=== PATIENT | female | born 1965 | race Caucasian/White ===

== ENCOUNTER 2017-10-28 19:42 | Emergency (ER) | payer MEDICAID ==
[~2017-10-28] VITALS: Ht 157.5 cm; Wt 65.3 kg
[~2017-10-28 19:42] MED LIST: COU3T PO; COU4T PO; GABA-338 PO; LAMO25TA4 PO; LEVO175T52 PO; LORA1TAB PO; NITR100C PO; NORCO10T PO; OMEP40CA37 PO; ONDA4TAB6 PO; PROM25TA14 PO; TRAZ-91 PO
[2017-10-28 20:54] LABS: BASOPHILS # (AUTO) 0.2 X10'3 (0-0.2); BASOPHILS % (AUTO) 1.4 % (0-1); EOSINOPHILS # (AUTO) 0.4 X10'3 (0-0.9); EOSINOPHILS % (AUTO) 3.3 % (0-6); HEMATOCRIT 39.1 % (35.0-45.0); HEMOGLOBIN 13.7 g/dl (12.0-16.0); MEAN CORPUSCULAR HEMOGLOBIN 30.1 PG (27.0-31.0); MEAN CORPUSCULAR HGB CONC 34.9 % (33.0-36.5); MEAN CORPUSCULAR VOLUME 86.2 FL (78-98); MEAN PLATELET VOLUME 8.2 FL (7.4-10.4); MONOCYTES # (AUTO) 0.5 X10'3 (0-0.9); MONOCYTES % (AUTO) 4.5 % (2-12); NEUTROPHILS # (AUTO) 7.1 X10'3 (1.8-7.7); NEUTROPHILS % (AUTO) 63.8 % (42-75); PLATELET COUNT 267 X10'3 (140-440); RED BLOOD COUNT 4.54 X10'6 (4.20-5.60); RED CELL DISTRIBUTION WIDTH 14.9 % (11.5-14.5); WHITE BLOOD COUNT 11.2 X10'3 (4.5-11.0)
[2017-10-28 21:06] LABS: INR 2.3 INR; PARTIAL THROMBOPLASTIN TIME 38 SECONDS (22-32); PROTHROMBIN TIME 22.7 SECONDS (9.0-12.0)
[2017-10-28 21:11] LABS: ALANINE AMINOTRANSFERASE 26 U/L (12-78); ALBUMIN 3.8 G/DL (3.4-5.0); ALBUMIN/GLOBULIN RATIO 1.1 (1.1-1.5); ALKALINE PHOSPHATASE 78 IU/L (46-116); ANION GAP 10 (8-16); ASPARTATE AMINO TRANSFERASE 18 U/L (10-37); BILIRUBIN,TOTAL 0.1 MG/DL (0.1-1.0); BLOOD UREA NITROGEN 16 MG/DL (7-18); BUN/CREATININE RATIO 18.8 (6.6-38.0); CALCIUM 9.2 MG/DL (8.5-10.1); CHLORIDE 105 MMOL/L (99-107); CREATININE 0.85 MG/DL (0.40-0.90); GLUCOSE 106 MG/DL (70-104); POTASSIUM 4.4 MMOL/L (3.5-5.1); SODIUM 143 MMOL/L (135-145); TOTAL CARBON DIOXIDE 28.2 MMOL/L (24-32); TOTAL PROTEIN 7.4 G/DL (6.4-8.2); eGFR 70 ML/MIN
[2017-10-28] MEDS ORDERED: HYDROcodone/acetaminophen 10/325mg tab PO ONE (22:50)
[2017-10-28] MEDS ORDERED: iohexol 350MG/ML 100ml bottle IV ONE (23:00)
[2017-10-28] MEDS ORDERED: DOXY100C43 PO (23:54)
[2017-10-29] MEDS ORDERED: diazepam 5mg tablet PO ONE (00:10)
[2017-10-29 01:01] VITALS: BP 172/64
== END 2017-10-29 01:02 | disposition home or self-care (01) ==
LOC: ER 19:43
DX: R09.1 Pleurisy (principal); J44.9 Chronic obstructive pulmonary disease, unspecified; F15.10 Other stimulant abuse, uncomplicated; Z86.73 Personal history of transient ischemic attack (TIA), and cerebral infarction without residual deficits; Z86.711 Personal history of pulmonary embolism; Z87.891 Personal history of nicotine dependence; Z88.0 Allergy status to penicillin; Z79.899 Other long term (current) drug therapy; Z79.01 Long term (current) use of anticoagulants; Z90.710 Acquired absence of both cervix and uterus
CPT/HCPCS: 36415; 71045; 71275; 80053; 84484; 85025; 85610; 85730; 93005; 99285; J7030; Q9967

== ENCOUNTER 2018-12-18 13:16 | Emergency (ER) | payer MEDICAID ==
[~2018-12-18] VITALS: Ht 157.5 cm; Wt 65.9 kg
[2018-12-18 13:22] VITALS: BP 152/72
[2018-12-18 14:03] LABS: URINE HCG NEGATIVE (NEG)
[2018-12-18 14:04] LABS: CLARITY,URINE CLEAR (Clear); COLOR,URINE YELLOW (Yellow); GLUCOSE, URINE NEGATIVE (Neg); KETONES,URINE NEGATIVE (Neg); LEUKOCYTE ESTERASE ,URINE NEGATIVE (Neg); NITRITES, URINE NEGATIVE (Neg); OCCULT BLOOD,URINE LARGE (Neg); PROTEIN,URINE NEGATIVE (Neg); UROBILINOGEN,URINE 0.2 E.U/dL (0.2-1.0)
[2018-12-18 14:10] LABS: UA COLLECTION TYPE CLN CATCH MIDSTREAM
[2018-12-18 14:12] LABS: BACTERIA,URINE NONE SEEN /HPF (Neg); MUCUS STRANDS FEW /LPF (Neg); SQUAMOUS EPITHELIAL CELL,UR FEW /LPF (FEW); WBC,URINE 0-4 /HPF (0-4)
[2018-12-18] MEDS ORDERED: ketorolac trometh inj. 60 MG/2 ML VIAL IM ONE (14:15)
== END 2018-12-18 14:55 | disposition home or self-care (01) ==
LOC: ER 13:16
DX: G89.29 Other chronic pain (principal); M54.5 Low back pain; R30.0 Dysuria; J44.9 Chronic obstructive pulmonary disease, unspecified; F15.90 Other stimulant use, unspecified, uncomplicated; Z86.73 Personal history of transient ischemic attack (TIA), and cerebral infarction without residual deficits; Z86.711 Personal history of pulmonary embolism; Z87.442 Personal history of urinary calculi; Z90.710 Acquired absence of both cervix and uterus; Z98.890 Other specified postprocedural states; Z88.0 Allergy status to penicillin; Z79.01 Long term (current) use of anticoagulants; Z79.899 Other long term (current) drug therapy
CPT/HCPCS: 81001; 81025; 96372; 99283; J1885

== ENCOUNTER 2019-05-23 13:25 | Inpatient (IN) | payer MEDICAID ==
[~2019-05-23] VITALS: Ht 162.6 cm; Wt 56.4 kg
[~2019-05-23 13:25] MED LIST changes: -COU3T PO; -COU4T PO; -GABA-338 PO; +GABA-532 PO; +LAMO150T2 PO; -LAMO25TA4 PO; -LEVO175T52 PO; +LEVO200T8 PO; -LORA1TAB PO; -NITR100C PO; -OMEP40CA37 PO; -ONDA4TAB6 PO; -PROM25TA14 PO; -TRAZ-91 PO; +TRAZ300T2 PO; +WARF6TAB PO
[2019-05-23] MEDS ORDERED: normal saline 1000ML IV soln IV ONE (13:40)
[2019-05-23] MEDS ORDERED: levoFLOXACIN-Levaquin 750MG/D5 150 ML IV STA (13:40)
[2019-05-23 13:55] LABS: BASOPHILS # (AUTO) 0.1 X10'3 (0-0.2); BASOPHILS % (AUTO) 0.6 % (0-1); EOSINOPHILS % (AUTO) 0.3 % (0-6); HEMATOCRIT 42.3 % (35.0-45.0); HEMOGLOBIN 14.3 g/dl (12.0-16.0); LYMPHOCYTES # (AUTO) 1.2 X10'3 (1.1-4.8); LYMPHOCYTES % (AUTO) 7.5 % (21-51); MEAN CORPUSCULAR HEMOGLOBIN 30.6 PG (27.0-31.0); MEAN CORPUSCULAR HGB CONC 33.8 g/dL (33.0-36.5); MEAN CORPUSCULAR VOLUME 90.4 FL (78-98); MONOCYTES # (AUTO) 0.7 X10'3 (0-0.9); MONOCYTES % (AUTO) 4.5 % (2-12); NEUTROPHILS # (AUTO) 14.3 X10'3 (1.8-7.7); NEUTROPHILS % (AUTO) 87.1 % (42-75); PLATELET COUNT 259 X10'3 (140-440); RED BLOOD COUNT 4.68 X10'6 (4.20-5.60); RED CELL DISTRIBUTION WIDTH 15.7 % (11.5-14.5); WHITE BLOOD COUNT 16.5 X10'3 (4.5-11.0)
[2019-05-23] MEDS ORDERED: acetaminophen 325mg tablet PO ONE (13:55)
[2019-05-23] MEDS ORDERED: morphine 4 MG/ML inj SYRINge IV ONE ×2 (13:55→15:45)
[2019-05-23 14:06] LABS: D-DIMER 0.23 MG/L FEU (0-0.50); PARTIAL THROMBOPLASTIN TIME 28 SECONDS (22-32)
[2019-05-23 14:10] LABS: ALANINE AMINOTRANSFERASE 24 U/L (12-78); ALBUMIN 4.2 G/DL (3.4-5.0); ALBUMIN/GLOBULIN RATIO 1.2 (1.1-1.5); ALKALINE PHOSPHATASE 57 IU/L (46-116); ANION GAP 12 (8-16); ASPARTATE AMINO TRANSFERASE 11 U/L (10-37); BILIRUBIN,TOTAL 0.4 MG/DL (0.1-1.0); BLOOD UREA NITROGEN 11 MG/DL (7-18); BUN/CREATININE RATIO 11.8 (6.6-38.0); CALCIUM 9.3 MG/DL (8.5-10.1); CHLORIDE 104 MMOL/L (99-107); CREATININE 0.93 MG/DL (0.40-0.90); GLUCOSE 107 MG/DL (70-104); POTASSIUM 4.2 MMOL/L (3.5-5.1); SODIUM 142 MMOL/L (135-145); TOTAL CARBON DIOXIDE 26.1 MMOL/L (24-32); TOTAL PROTEIN 7.7 G/DL (6.4-8.2); eGFR 63 ML/MIN
[2019-05-23 14:12] LABS: TROPONIN I < 0.04 NG/ML (0.0-0.05)
--- NOTE | 2019-05-23 16:02 | NUR ---
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
[2019-05-23] MEDS ORDERED: mag hydrox/Alum hydrox/simeth 30ml oral suspension PO PRN (17:00)
[2019-05-23] MEDS ORDERED: acetaminophen 325mg tablet PO PRN ×2 (17:00)
[2019-05-23] MEDS ORDERED: ondansetron/PF 4mg/2ml inj IV PRN (17:00)
[2019-05-23] MEDS ORDERED: morphine 2 MG/ML inj. syringe IV PRN (17:00)
[2019-05-23] MEDS ORDERED: HYDROcodone/acetaminophen 5mg/325mg tablet PO PRN (17:00)
[2019-05-23] MEDS ORDERED: magnesium hydroxide 30ml (MOM) UD suspension PO PRN (17:00)
[2019-05-23] MEDS ORDERED: nicotine 21mg patch - 24 hr TD ONE (17:30)
[2019-05-23] MEDS: HYDROcodone/acetaminophen 10/325mg tab PO PRN ×2 (17:31→23:52)
[2019-05-23] MEDS ORDERED: TRAZ300T2 PO (17:47)
[2019-05-23] MEDS ORDERED: DOCU100C41 PO (17:47)
[2019-05-23] MEDS ORDERED: LAMO200T PO (17:47)
[2019-05-23] MEDS ORDERED: GABA-532 PO (17:47)
[2019-05-23] MEDS ORDERED: NORCO10T PO (17:47)
[2019-05-23] MEDS ORDERED: LEVO200T8 PO (17:47)
[2019-05-23] MEDS ORDERED: LAMO100T65 PO (17:47)
[2019-05-23] MEDS ORDERED: APIX5TAB3 PO (17:47)
[2019-05-23] MEDS ORDERED: heparin 10,000 units/1 ML INJ IV ONE (17:50)
[2019-05-23] MEDS ORDERED: LAMO100T89 PO (17:50)
[2019-05-23] MEDS: normal saline 1000ml 1,000 ML IV SCH (17:57)
[2019-05-23 19:16] VITALS: BP 115/54
[2019-05-23] MEDS ORDERED: pneumococcal 23-VAL P-sac vacc 25 mcg/0.5ml vial IMVAC ONE (19:55)
[2019-05-23] MEDS: gabapentin 300mg capsule PO SCH (19:58)
[2019-05-23] MEDS: lactobacillus rhamnosus 10,000 MMU CELLS/CAPSULE PO SCH (19:58)
[2019-05-23] MEDS: heparin 25,000 UNIT/250ml bag 250 ML IV SCH (20:02)
[2019-05-23] MEDS: traZODone 150mg tablet PO SCH (20:11)
[2019-05-23] MEDS: docusate sod 100mg capsule PO SCH (20:11)
[2019-05-23] MEDS: lamoTRIgine 100mg tablet PO SCH (20:12)
[2019-05-23] MEDS ORDERED: warfarin 5mg tablet PO ONE (21:00)
[2019-05-23] MEDS ORDERED: albuterol 2.5 MG/3 ML nebule NEB PRN (21:10)
[2019-05-24] VITALS: BP 96/51
[2019-05-24 02:37] LABS: ANION GAP 11 (8-16); BLOOD UREA NITROGEN 11 MG/DL (7-18); BUN/CREATININE RATIO 12.6 (6.6-38.0); CALCIUM 8.3 MG/DL (8.5-10.1); CHLORIDE 107 MMOL/L (99-107); CREATININE 0.87 MG/DL (0.40-0.90); GLUCOSE 149 MG/DL (70-104); POTASSIUM 3.9 MMOL/L (3.5-5.1); SODIUM 142 MMOL/L (135-145); eGFR 68 ML/MIN
[2019-05-24 02:52] LABS: BASOPHILS # (AUTO) 0.1 X10'3 (0-0.2); BASOPHILS % (AUTO) 0.3 % (0-1); EOSINOPHILS % (AUTO) 0.1 % (0-6); HEMATOCRIT 36.3 % (35.0-45.0); LYMPHOCYTES # (AUTO) 1.2 X10'3 (1.1-4.8); LYMPHOCYTES % (AUTO) 6.5 % (21-51); MEAN CORPUSCULAR HEMOGLOBIN 30.1 PG (27.0-31.0); MEAN CORPUSCULAR HGB CONC 33.2 g/dL (33.0-36.5); MEAN CORPUSCULAR VOLUME 90.6 FL (78-98); MEAN PLATELET VOLUME 8.3 FL (7.4-10.4); MONOCYTES # (AUTO) 0.8 X10'3 (0-0.9); MONOCYTES % (AUTO) 4.5 % (2-12); NEUTROPHILS # (AUTO) 15.9 X10'3 (1.8-7.7); NEUTROPHILS % (AUTO) 88.6 % (42-75); PLATELET COUNT 206 X10'3 (140-440); RED CELL DISTRIBUTION WIDTH 15.7 % (11.5-14.5); WHITE BLOOD COUNT 17.9 X10'3 (4.5-11.0)
[2019-05-24] MEDS: normal saline 1000ml 1,000 ML IV SCH ×3 (05:20→23:46)
[2019-05-24] MEDS: HYDROcodone/acetaminophen 10/325mg tab PO PRN ×4 (06:14→20:47)
--- NOTE | 2019-05-24 06:17 | NUR ---
Problems reprioritized. Patient report given, questions answered & plan of care reviewed with Aydee SPENCER.
--- NOTE | 2019-05-24 06:30 | NUR ---
Patient in room [facility]. I have received report from Mildred SPENCER and had the opportunity to ask questions and assume patient care. Patient resting eyes closed respirations even.
[2019-05-24 07:26] VITALS: BP 90/78
[2019-05-24] MEDS: lactobacillus rhamnosus 10,000 MMU CELLS/CAPSULE PO SCH ×2 (07:39→19:30)
[2019-05-24] MEDS: levoTHYROXINE 100mcg tablet PO SCH (07:40)
[2019-05-24] MEDS: gabapentin 300mg capsule PO SCH ×2 (07:40→19:30)
[2019-05-24] MEDS: lamoTRIgine 100mg tablet PO SCH ×2 (07:40→20:46)
[2019-05-24 08:20] VITALS: BP 122/72
[2019-05-24] MEDS: ketorolac tromethamine 15mg/ml inj. IV PRN ×2 (10:04→18:35)
[2019-05-24] MEDS: levoFLOXACIN-Levaquin 750MG/D5 150 ML IV SCH (10:35)
[2019-05-24] MEDS: heparin 10,000 units/1 ML INJ IV PRN ×2 (10:49→18:33)
[2019-05-24] MEDS: heparin 25,000 UNIT/250ml bag 250 ML IV SCH ×2 (10:52→18:32)
[2019-05-24 11:00] VITALS: BP 118/54
--- NOTE | 2019-05-24 18:30 | NUR ---
Problems reprioritized. Patient report given, questions answered & plan of care reviewed with Mildred SPENCER.
--- NOTE | 2019-05-24 18:30 | NUR ---
Patient in room [facility]. I have received report from Aydee SPENCER and had the opportunity to ask questions and assume patient care.
[2019-05-24] MEDS: nicotine 21mg patch - 24 hr TD SCH (18:37)
[2019-05-24] MEDS: docusate sod 100mg capsule PO SCH (20:46)
[2019-05-24] MEDS: traZODone 150mg tablet PO SCH (20:48)
[2019-05-24] MEDS ORDERED: warfarin 5mg tablet PO ONE (21:00)
[2019-05-24 21:08] VITALS: BP 115/61
[2019-05-24 23:56] VITALS: BP 98/60
[2019-05-25 01:50] LABS: BASOPHILS % (AUTO) 0.5 % (0-1); EOSINOPHILS # (AUTO) 0.1 X10'3 (0-0.9); EOSINOPHILS % (AUTO) 1.2 % (0-6); HEMATOCRIT 32.6 % (35.0-45.0); HEMOGLOBIN 10.8 g/dl (12.0-16.0); LYMPHOCYTES # (AUTO) 1.5 X10'3 (1.1-4.8); LYMPHOCYTES % (AUTO) 16.8 % (21-51); MEAN CORPUSCULAR HEMOGLOBIN 29.9 PG (27.0-31.0); MEAN CORPUSCULAR VOLUME 90.6 FL (78-98); MEAN PLATELET VOLUME 8.1 FL (7.4-10.4); MONOCYTES # (AUTO) 0.6 X10'3 (0-0.9); NEUTROPHILS # (AUTO) 6.7 X10'3 (1.8-7.7); NEUTROPHILS % (AUTO) 74.5 % (42-75); PLATELET COUNT 185 X10'3 (140-440); RED CELL DISTRIBUTION WIDTH 15.8 % (11.5-14.5); WHITE BLOOD COUNT 8.9 X10'3 (4.5-11.0)
[2019-05-25 02:04] LABS: ALBUMIN 2.6 G/DL (3.4-5.0); ANION GAP 9 (8-16); BLOOD UREA NITROGEN 10 MG/DL (7-18); BUN/CREATININE RATIO 12.7 (6.6-38.0); CALCIUM 8.1 MG/DL (8.5-10.1); CHLORIDE 111 MMOL/L (99-107); CREATININE 0.79 MG/DL (0.40-0.90); GLUCOSE 101 MG/DL (70-104); SODIUM 143 MMOL/L (135-145); TOTAL CARBON DIOXIDE 23.5 MMOL/L (24-32); eGFR 76 ML/MIN
[2019-05-25] MEDS: HYDROcodone/acetaminophen 10/325mg tab PO PRN ×4 (03:07→20:40)
[2019-05-25] MEDS: heparin 10,000 units/1 ML INJ IV PRN ×2 (03:09→16:30)
[2019-05-25] MEDS: heparin 25,000 UNIT/250ml bag 250 ML IV SCH ×2 (03:12→14:43)
--- NOTE | 2019-05-25 06:01 | NUR ---
Problems reprioritized. Patient report given, questions answered & plan of care reviewed with Aydee SPENCER.
[2019-05-25 08:00] VITALS: BP 110/51
[2019-05-25] MEDS: lactobacillus rhamnosus 10,000 MMU CELLS/CAPSULE PO SCH ×2 (08:59→20:40)
[2019-05-25] MEDS: gabapentin 300mg capsule PO SCH ×2 (08:59→20:40)
[2019-05-25] MEDS: lamoTRIgine 100mg tablet PO SCH ×2 (08:59→20:40)
[2019-05-25] MEDS: levoFLOXACIN-Levaquin 750MG/D5 150 ML IV SCH (09:03)
[2019-05-25] MEDS: levoTHYROXINE 100mcg tablet PO SCH (09:09)
--- NOTE | 2019-05-25 09:52 | NUR ---
ptt for heparin protocol is 50 on this lab draw. No changes needed/made to gtt.
[2019-05-25 11:00] VITALS: BP 121/53
[2019-05-25] MEDS: morphine 2 MG/ML inj. syringe IV PRN ×2 (12:30→18:04)
[2019-05-25] MEDS ORDERED: iohexol 350MG/ML 100ml bottle IV ONE (15:38)
--- NOTE | 2019-05-25 16:36 | NUR ---
PTT DVT low at 39. Bolus dose give per protocol and Rate change done per protocol now at 1400.
[2019-05-25] MEDS: nicotine 21mg patch - 24 hr TD SCH (17:56)
[2019-05-25 18:00] VITALS: BP 119/71
--- NOTE | 2019-05-25 18:19 | NUR ---
Patient in room [facility]. I have received report from TJ Martin and had the opportunity to ask questions and assume patient care. Addendum: 05/25/19 at 1819 by Sarah Fox RN Amended: Links added.
--- NOTE | 2019-05-25 18:48 | NUR ---
Problems reprioritized. Patient report given, questions answered & plan of care reviewed with Aylin Davis RN.
[2019-05-25] MEDS: docusate sod 100mg capsule PO SCH (20:40)
[2019-05-25] MEDS: apixaban 5mg tablet PO SCH (20:40)
[2019-05-25] MEDS ORDERED: warfarin 7.5mg tablet PO ONE (21:00)
[2019-05-25] MEDS: traZODone 150mg tablet PO SCH (22:26)
[2019-05-26 00:36] VITALS: BP 114/60
[2019-05-26] MEDS: HYDROcodone/acetaminophen 10/325mg tab PO PRN ×2 (01:23→08:13)
[2019-05-26 04:51] LABS: BASOPHILS % (AUTO) 0.6 % (0-1); EOSINOPHILS # (AUTO) 0.2 X10'3 (0-0.9); EOSINOPHILS % (AUTO) 2.2 % (0-6); HEMATOCRIT 31.7 % (35.0-45.0); HEMOGLOBIN 10.6 g/dl (12.0-16.0); LYMPHOCYTES # (AUTO) 1.7 X10'3 (1.1-4.8); LYMPHOCYTES % (AUTO) 23.6 % (21-51); MEAN CORPUSCULAR HEMOGLOBIN 30.6 PG (27.0-31.0); MEAN CORPUSCULAR HGB CONC 33.5 g/dL (33.0-36.5); MEAN CORPUSCULAR VOLUME 91.3 FL (78-98); MEAN PLATELET VOLUME 8.2 FL (7.4-10.4); MONOCYTES # (AUTO) 0.5 X10'3 (0-0.9); MONOCYTES % (AUTO) 6.3 % (2-12); NEUTROPHILS # (AUTO) 4.9 X10'3 (1.8-7.7); NEUTROPHILS % (AUTO) 67.3 % (42-75); PLATELET COUNT 195 X10'3 (140-440); RED BLOOD COUNT 3.47 X10'6 (4.20-5.60); RED CELL DISTRIBUTION WIDTH 15.9 % (11.5-14.5); WHITE BLOOD COUNT 7.3 X10'3 (4.5-11.0)
[2019-05-26 05:18] LABS: ALBUMIN 2.6 G/DL (3.4-5.0); ANION GAP 9 (8-16); BLOOD UREA NITROGEN 11 MG/DL (7-18); BUN/CREATININE RATIO 13.6 (6.6-38.0); CALCIUM 8.7 MG/DL (8.5-10.1); CHLORIDE 110 MMOL/L (99-107); CREATININE 0.81 MG/DL (0.40-0.90); GLUCOSE 117 MG/DL (70-104); POTASSIUM 3.7 MMOL/L (3.5-5.1); SODIUM 144 MMOL/L (135-145); TOTAL CARBON DIOXIDE 24.6 MMOL/L (24-32); eGFR 73 ML/MIN
--- NOTE | 2019-05-26 06:32 | NUR ---
Problems reprioritized. Patient report given, questions answered & plan of care reviewed with TJ Maradiaga. Addendum: 05/26/19 at 0632 by Sarah Fox RN Amended: Links added.
[2019-05-26 07:30] VITALS: BP 113/50
[2019-05-26] MEDS: lactobacillus rhamnosus 10,000 MMU CELLS/CAPSULE PO SCH (08:09)
[2019-05-26] MEDS: gabapentin 300mg capsule PO SCH (08:09)
[2019-05-26] MEDS: levoTHYROXINE 100mcg tablet PO SCH (08:09)
[2019-05-26] MEDS: apixaban 5mg tablet PO SCH (08:09)
[2019-05-26] MEDS: lamoTRIgine 100mg tablet PO SCH (08:09)
[2019-05-26] MEDS: levoFLOXACIN-Levaquin 750MG/D5 150 ML IV SCH (08:14)
[2019-05-26] MEDS ORDERED: LEVO750T21 PO (08:58)
[2019-05-26] MEDS ORDERED: HYDR-4353 PO ×2 (08:58→09:04)
== END 2019-05-26 11:37 | disposition home or self-care (01) | DRG 140 ==
LOC: ER 13:26 → SUR 3N 19:22
PROVIDERS: ADMIT Internal Medicine; ATTEND Internal Medicine
PROC: 3E0234Z Introduction of Serum, Toxoid and Vaccine into Muscle, Percutaneous Approach (ICD-10-PCS; principal; 2019-05-23)
PROC: B32T1ZZ Computerized Tomography (CT Scan) of Left Pulmonary Artery using Low Osmolar Contrast (ICD-10-PCS; 2019-05-25)
PROC: B3201ZZ Computerized Tomography (CT Scan) of Thoracic Aorta using Low Osmolar Contrast (ICD-10-PCS; 2019-05-25)
PROC: B32S1ZZ Computerized Tomography (CT Scan) of Right Pulmonary Artery using Low Osmolar Contrast (ICD-10-PCS; 2019-05-25)
DX: J44.0 Chronic obstructive pulmonary disease with (acute) lower respiratory infection (principal); J18.9 Pneumonia, unspecified organism; E03.9 Hypothyroidism, unspecified; F15.90 Other stimulant use, unspecified, uncomplicated; F32.9 Major depressive disorder, single episode, unspecified; F41.9 Anxiety disorder, unspecified; G89.29 Other chronic pain; R07.0 Pain in throat; E05.00 Thyrotoxicosis with diffuse goiter without thyrotoxic crisis or storm; F17.210 Nicotine dependence, cigarettes, uncomplicated; D64.9 Anemia, unspecified; Z79.01 Long term (current) use of anticoagulants; Z86.711 Personal history of pulmonary embolism; Z86.718 Personal history of other venous thrombosis and embolism; Z86.73 Personal history of transient ischemic attack (TIA), and cerebral infarction without residual deficits; Z87.442 Personal history of urinary calculi; Z90.710 Acquired absence of both cervix and uterus; Z98.891 History of uterine scar from previous surgery; Z23 Encounter for immunization; Z88.0 Allergy status to penicillin; Z88.8 Allergy status to other drugs, medicaments and biological substances; Z79.899 Other long term (current) drug therapy
CPT/HCPCS: 36415; 71045; 71250; 71275; 76937; 80048; 80053; 83605; 83880; 84145; 84443; 84484; 85025; 85379; 85610; 85651; 85730; 87040; 87077; 87081; 90732; 93005; 94667; 94760; 96365; 96375; 99285; G0378; J1644; J1885; J1956; J2270; J7030; Q9967

== ENCOUNTER 2024-12-13 09:17 | Emergency (ER) | payer MEDICAID ==
[~2024-12-13] VITALS: Ht 154.9 cm; Wt 83.9 kg
[~2024-12-13 09:17] MED LIST changes: +ALBU6.7H14 INH; +APIX5TAB3 PO; +DOCU100C41 PO; +HYDR-4353 PO; +LAMO100T PO; -LAMO150T2 PO; +LAMO200T10 PO; -WARF6TAB PO
[2024-12-13 11:19] LABS: ALBUMIN 3.5 G/DL (3.4-5.0); ANION GAP 8 (8-16); BLOOD UREA NITROGEN 23 MG/DL (7-18); BUN/CREATININE RATIO 19.2 (10.0-20.0); CALCIUM 8.8 MG/DL (8.5-10.1); CHLORIDE 106 MMOL/L (99-107); GLUCOSE 96 MG/DL (70-104); POTASSIUM 4.3 MMOL/L (3.5-5.1); PRO BRAIN NATRIURETIC PEPTIDE 49 PG/ML (0-125); SODIUM 141 MMOL/L (135-145); TOTAL CARBON DIOXIDE 26.7 MMOL/L (24-32); eCRCL 38 ML/MIN; eGFR 46 ML/MIN
[2024-12-13 11:24] LABS: THYROID STIMULATING HORMONE 77.88 ulU/ml (0.34-4.50)
[2024-12-13 12:00] LABS: BASOPHILS # (AUTO) 0.1 X10'3 (0-0.2); BASOPHILS % (AUTO) 1.2 % (0-1); EOSINOPHILS # (AUTO) 0.2 X10'3 (0-0.9); EOSINOPHILS % (AUTO) 2.3 % (0-6); HEMATOCRIT 28.5 % (35.0-45.0); HEMOGLOBIN 9.1 g/dl (12.0-16.0); LYMPHOCYTES # (AUTO) 1.8 X10'3 (1.1-4.8); LYMPHOCYTES % (AUTO) 18.1 % (21-51); MEAN CORPUSCULAR HEMOGLOBIN 27.5 PG (27.0-31.0); MEAN PLATELET VOLUME 7.6 FL (7.4-10.4); MONOCYTES # (AUTO) 0.4 X10'3 (0-0.9); MONOCYTES % (AUTO) 4.1 % (2-12); NEUTROPHILS # (AUTO) 7.4 X10'3 (1.8-7.7); NEUTROPHILS % (AUTO) 74.3 % (42-75); PLATELET COUNT 431 X10'3 (140-440); RED BLOOD COUNT 3.31 X10'6 (4.20-5.60); RED CELL DISTRIBUTION WIDTH 18.4 % (11.5-14.5); WHITE BLOOD COUNT 9.9 X10'3 (4.5-11.0)
[2024-12-13 12:29] LABS: ALBUMIN 3.5 G/DL (3.4-5.0); ANION GAP 7 (8-16); BLOOD UREA NITROGEN 22 MG/DL (7-18); CALCIUM 8.9 MG/DL (8.5-10.1); CHLORIDE 106 MMOL/L (99-107); GLUCOSE 97 MG/DL (70-104); POTASSIUM 4.6 MMOL/L (3.5-5.1); PRO BRAIN NATRIURETIC PEPTIDE 48 PG/ML (0-125); SODIUM 141 MMOL/L (135-145); TOTAL CARBON DIOXIDE 27.7 MMOL/L (24-32); eCRCL 41 ML/MIN; eGFR 51 ML/MIN
[2024-12-13 12:31] LABS: THYROID STIMULATING HORMONE 70.33 ulU/ml (0.34-4.50)
[2024-12-13 13:08] VITALS: BP 129/67; PULSE 70; RESP 18; TEMP 98.4; O2SAT 97
== END 2024-12-13 13:04 | disposition home or self-care (01) ==
LOC: ER 09:17
DX: E03.9 Hypothyroidism, unspecified (principal); F15.90 Other stimulant use, unspecified, uncomplicated; J45.909 Unspecified asthma, uncomplicated; J44.9 Chronic obstructive pulmonary disease, unspecified; F41.9 Anxiety disorder, unspecified; F32.A Depression, unspecified; E07.9 Disorder of thyroid, unspecified; Z86.711 Personal history of pulmonary embolism; Z86.73 Personal history of transient ischemic attack (TIA), and cerebral infarction without residual deficits; Z90.710 Acquired absence of both cervix and uterus; Z88.0 Allergy status to penicillin; Z88.5 Allergy status to narcotic agent; Z79.899 Other long term (current) drug therapy; Z87.442 Personal history of urinary calculi
CPT/HCPCS: 36415; 71046; 80048; 83880; 84443; 84484; 85025; 87502; 87503; 93005; 99285